=== PATIENT | male | born 1965 | race Caucasian/White ===

== ENCOUNTER 2017-07-03 10:35 | Observation (INO) | payer BC ==
--- NOTE | 2017-07-03 10:57 | ED ---
Chest Pain HPI - General Chief Complaint: Chest Pain Stated Complaint: Chest Pain Time Seen by Provider: 07/03/17 10:43 Source: patient, RN notes reviewed Mode of arrival: wheelchair Limitations: no limitations - History of Present Illness Initial Comments: This is a 51-year-old male with a benign past history who is a former smoker who quit 8 years ago who does however have a very strong history of heart disease he states his great-grandfather his grandfather at the age of 55 and [place] his dad at 86 with a heart condition who complains of 2 days of intermittent episodes of retrosternal chest pain and some left arm pain. Her with left arm discomfort and later had chest pressure. 3-4/10 in severity lasting few minutes every time he would come on. He also feels tired. He does state he is at increased stress at work. He's had no cough no fevers chills or other symptoms. He did take 2 aspirins this morning. MD Complaint: chest pain - Related Data Home Medications Medication Instructions Recorded Confirmed Gabapentin [Neurontin] 400 mg PO TID 07/03/17 07/03/17 Hydrocodone/Acetaminophen [[place] 1 tab PO Q4H PRN 07/03/17 07/03/17 10-325] Omeprazole 20 mg PO DAILY 07/03/17 07/03/17 Allergies Allergy/AdvReac Type Severity Reaction Status Date / Time No Known Allergies Allergy Verified 07/03/17 10:50 Review of Systems ROS Statement: Those systems with pertinent positive or pertinent negative responses have been documented in the HPI. ROS Other: All systems not noted in ROS Statement are negative. EKG Findings - EKG Results: EKG: interpreted by GRACIELAD, sinus rhythm, normal axis, normal QRS, normal ST/T, no acute changes (Normal sinus rhythm a 71 appear interval 134 QRS 92 QT since QTC of 414/449 some artifact is present) Past Medical History Additional Past Medical History / Comment(s): back pain History of Any Multi-Drug Resistant Organisms: None Reported Past Surgical History: Orthopedic Surgery Additional Past Surgical History / Comment(s): knees, right thumb Past Psychological History: No Psychological Hx Reported Smoking Status: Never smoker Past Alcohol Use History: Occasional Past Drug Use History: None Reported General Exam - General Exam Comments Initial Comments: This is a well-developed well-nourished awake alert oriented 3 male Limitations: no limitations General appearance: alert, anxious Head exam: Present: atraumatic, normocephalic, normal inspection Eye exam: Present: normal appearance, PERRL, EOMI. Absent: scleral icterus, conjunctival injection, periorbital swelling ENT exam: Present: normal exam, mucous membranes moist Neck exam: Present: normal inspection. Absent: tenderness, meningismus, lymphadenopathy Respiratory exam: Present: normal lung sounds bilaterally. Absent: respiratory distress, wheezes, rales, rhonchi, stridor Cardiovascular Exam: Present: regular rate, normal rhythm, normal heart sounds. Absent: systolic murmur, diastolic murmur, rubs, gallop, clicks GI/Abdominal exam: Present: soft, normal bowel sounds. Absent: distended, tenderness, guarding, rebound, rigid Extremities exam: Present: normal inspection, full ROM, normal capillary refill. Absent: tenderness, pedal edema, joint swelling, calf tenderness Back exam: Present: normal inspection Neurological exam: Present: alert, oriented X3, CN II-XII intact Psychiatric exam: Present: normal affect, normal mood Skin exam: Present: warm, dry, intact, normal color. Absent: rash Course Vital Signs 07/03/17 07/03/17 10:36 12:00 Temperature 98.3 F Pulse Rate 74 72 Respiratory 16 20 Rate Blood Pressure 158/92 122/87 O2 Sat by Pulse 99 99 Oximetry Chest Pain MDM - MDM I did discuss findings with the patient he is remained pain-free. The presentation is consistent with new onset unstable angina. The patient will be admitted I did discuss case with Dr. Clark. Disposition Clinical Impression: Unstable angina pectoris Disposition: ADMITTED IP TO THIS [facility] Condition: Stable Referrals: Sang Angel III, MD [Primary Care Provider] - 1-2 days
[2017-07-03 11:19] LABS: Basophils % (A) 0 %; CH 32.8; CHCM 33.8; Eosinophils # (A) 0.1 k/uL (0-0.7); Eosinophils % (A) 1 %; HCT 40.6 % (39.0-53.0); HDW 2.36; HGB 13.4 gm/dL (13.0-17.5); Luc # (Auto) 0.19; Luc % (Auto) 3; Lymphocytes # (A) 1.7 k/uL (1.0-4.8); Lymphocytes % (A) 22 %; MCH 32.3 pg (25.0-35.0); MCHC 33.1 g/dL (31.0-37.0); MCV 97.7 fL (80.0-100.0); Monocytes # (A) 0.4 k/uL (0-1.0); Monocytes % (A) 6 %; Neutrophils # (A) 5.1 k/uL (1.3-7.7); Neutrophils % (A) 68 %; RBC 4.15 m/uL (4.30-5.90); RDW 13.1 % (11.5-15.5); WBC 7.5 k/uL (3.8-10.6); WBC (Perox) 7.52
[2017-07-03 11:28] LABS: ALT 43 U/L (21-72); AST 31 U/L (17-59); Alkaline Phosphatase 57 U/L (38-126); Amylase 63 U/L (30-110); Anion Gap 12 mmol/L; Blood Urea Nitrogen 14 mg/dL (9-20); Calcium 9.1 mg/dL (8.4-10.2); Carbon Dioxide 25 mmol/L (22-30); Chloride 101 mmol/L (98-107); Glucose 102 mg/dL (74-99); Magnesium 1.9 mg/dL (1.6-2.3); Non-African American GFR(MDRD) >60 (>60 ml/min/1.73 sqM); Potassium 3.8 mmol/L (3.5-5.1); Sodium 138 mmol/L (137-145); Total Bilirubin 0.9 mg/dL (0.2-1.3); Total Protein 7.5 g/dL (6.3-8.2)
[2017-07-03 11:35] LABS: INR 1.2 (<1.2); Partial Thromboplastin Time 24.4 sec (22.0-30.0); Prothrombin Time 11.7 sec (9.0-12.0)
[2017-07-03 11:37] LABS: Creatine Kinase 534 U/L (55-170)
--- NOTE | 2017-07-03 11:45 | XR ---
EXAMINATION TYPE: XR chest 2V DATE OF EXAM: 07/03/2017 COMPARISON: NONE HISTORY: Chest pain TECHNIQUE: Frontal and lateral views of the chest are obtained. FINDINGS: There is no focal air space opacity, pleural effusion, or pneumothorax seen. Skinfold is n oted of the overlying the left apices extending beyond the lung into the upper neck. The cardiac raquel houette size is within normal limits. The osseous structures are intact. Mild degenerative changes of the thoracic spine are noted. IMPRESSION: No acute cardiopulmonary process.
[2017-07-03 11:51] LABS: Troponin I <0.012 ng/mL (0.000-0.034)
[2017-07-03] MEDS ORDERED: NITROGLYCERIN SL TABS 0.4 MG TAB SUBLINGUAL PRN (12:51)
[2017-07-03] MEDS ORDERED: HEPARIN SODIUM,PORCINE 5,000 UNIT/ML 1 ML VIAL IV ONE (12:51)
[2017-07-03] MEDS ORDERED: HYDROcodone/APAP 10-325MG 1 EACH TAB PO PRN (12:54)
[2017-07-03] MEDS ORDERED: SODIUM CHLORIDE 0.9% 1,000 ML IV SCH (13:00)
[2017-07-03] MEDS: HEPARIN SODIUM,PORCINE 25,000 UNIT in SODIUM CHLORIDE 0.45 % 500 ML IV SCH (13:26)
[2017-07-03] MEDS: GABAPENTIN 400 MG CAP PO SCH ×2 (16:43→21:28)
[2017-07-03] MEDS ORDERED: ALPRAZolam 0.25 MG TAB PO PRN (16:53)
[2017-07-03] MEDS ORDERED: TEMAZEPAM 15 MG CAP PO PRN (16:53)
[2017-07-03 17:51] LABS: Creatine Kinase MB 2.1 ng/mL (0.0-2.4)
[2017-07-03 17:55] LABS: Troponin I 0.073 ng/mL (0.000-0.034)
--- NOTE | 2017-07-03 18:59 | HP ---
HISTORY AND PHYSICAL CHIEF COMPLAINT: Chest pain. HISTORY OF PRESENT ILLNESS: This 51-year-old gentleman with a past medical history of multiple medical problems, including low back pain, history of DJD, history of bilateral knee arthroscopy, being followed by Dr. Angel in the outpatient setting, was complaining of chest pain. The patient felt chest pain mostly in the left side. Subsequently left-sided and also left arm and left jaw also. The patient came to [facility] and was admitted for further evaluation. The patient actually has a family history, also. There is no history of any fever, rigors. No history of headache, loss of consciousness, seizures. No relieving factors. No other symptoms at this time. PAST MEDICAL AND SURGICAL HISTORY: 1. History of DJD. 2. History of bilateral knee arthroscopy. 3. History of chronic back pain. 4. History of left arm fracture. HOME MEDICATIONS: 1. Hydrocodone 10 mg q.4 p.r.n. 2. Neurontin 400 mg p.o. t.i.d. 3. Omeprazole 20 mg p.o. daily. ALLERGIES: NONE. FAMILY HISTORY: History of coronary artery disease in father and paternal grandfather. SOCIAL HISTORY: Previous history of smoking. Occasional alcohol intake. REVIEW OF SYSTEMS: ENT: No diminished hearing. No diminished vision. CARDIOVASCULAR SYSTEM: As mentioned earlier. RESPIRATORY SYSTEM: As mentioned earlier. GI: No nausea, vomiting. : No dysuria. NERVOUS SYSTEM: No numbness, weakness. ALLERGY/IMMUNOLOGY: No asthma or hayfever. MUSCULOSKELETAL: As mentioned earlier. HEMATOLOGY/ONCOLOGY: No history of anemia. ENDOCRINE: No history of diabetes or hypothyroidism. CONSTITUTIONAL: As mentioned earlier. DERMATOLOGY: Negative. RHEUMATOLOGY: Negative. PSYCHIATRY: As mentioned earlier. PHYSICAL EXAMINATION: Patient is alert and oriented x3. Pulse is 99, blood pressure 140/73, respiration 18, temperature 98 degrees, pulse ox 94% on room air. HEENT: Conjunctivae normal. NECK: No jugular venous distention. CARDIOVASCULAR SYSTEM: S1, S2 muffled. RESPIRATORY SYSTEM: Breath sounds diminished at the bases. A few scattered rhonchi. No crackles. ABDOMEN: Soft, nontender. No mass palpable. LEGS: No edema. No swelling. NERVOUS SYSTEM: Higher functions as mentioned earlier. Moves all four limbs. No focal motor or sensory deficits. LYMPHATICS: No lymph node palpable in neck or axillae. SKIN: No ulcer, rash, bleeding. LABS: WBC 7.2, hemoglobin 13.4. INR 1.2. Glucose 102. CK is 534. ASSESSMENT: 1. Chest pain; possible unstable angina. 2. Creatine kinase 534 with normal troponin. 3. Chronic low back pain. 4. Degenerative joint disease. 5. History of bilateral knee arthroscopy. 6. Remote history of nicotine dependence. 7. Family history of coronary artery disease. RECOMMENDATIONS AND DISCUSSION: I recommend to continue current medication, continue symptomatic treatment. Otherwise, rule out myocardial infarction. Patient's CK is slightly elevated. EKG did not show an acute abnormality. Will continue to monitor and closely follow with Cardiology. Patient will require further cardiac workup at this time. Further recommendations to follow. JAYL / AMBERLYN: [id number] / MTDD
[2017-07-03] MEDS ORDERED: HEPARIN SODIUM,PORCINE 5,000 UNIT/ML 1 ML VIAL IV PRN (19:34)
[2017-07-03] MEDS: NITROGLYCERIN OINT 1 INCH/GM PACKET TOPICAL SCH (20:21)
[2017-07-03 23:12] LABS: Creatine Kinase 334 U/L (55-170)
[2017-07-03 23:25] LABS: Creatine Kinase MB 1.8 ng/mL (0.0-2.4); Troponin I <0.012 ng/mL (0.000-0.034)
[2017-07-04] MEDS: NITROGLYCERIN OINT 1 INCH/GM PACKET TOPICAL SCH ×3 (02:11→11:08)
[2017-07-04 03:22] LABS: Basophils % (A) 0 %; CH 32.9; CHCM 33.8; Eosinophils # (A) 0.1 k/uL (0-0.7); Eosinophils % (A) 1 %; HCT 39.4 % (39.0-53.0); HDW 2.32; Luc # (Auto) 0.12; Luc % (Auto) 2; Lymphocytes # (A) 2.3 k/uL (1.0-4.8); Lymphocytes % (A) 34 %; MCH 32.4 pg (25.0-35.0); Mean Platelet Volume 6.9; Monocytes # (A) 0.4 k/uL (0-1.0); Monocytes % (A) 6 %; Neutrophils # (A) 3.8 k/uL (1.3-7.7); Neutrophils % (A) 57 %; RBC 4.02 m/uL (4.30-5.90); RDW 13.1 % (11.5-15.5); WBC 6.7 k/uL (3.8-10.6); WBC (Perox) 6.75
[2017-07-04 03:33] LABS: Anion Gap 10 mmol/L; Blood Urea Nitrogen 13 mg/dL (9-20); Calcium 8.9 mg/dL (8.4-10.2); Carbon Dioxide 23 mmol/L (22-30); Chloride 105 mmol/L (98-107); Cholesterol 226 mg/dL (<200); Creatine Kinase 302 U/L (55-170); Glucose 105 mg/dL (74-99); HDL Cholesterol 71 mg/dL (40-60); Non-African American GFR(MDRD) >60 (>60 ml/min/1.73 sqM); Potassium 3.9 mmol/L (3.5-5.1); Sodium 138 mmol/L (137-145)
[2017-07-04 04:13] VITALS: RESP 16
[2017-07-04] MEDS: GABAPENTIN 400 MG CAP PO SCH (08:01)
[2017-07-04 08:11] VITALS: PULSE 81
[2017-07-04] MEDS ORDERED: ASPIRIN 325 MG TAB PO SCH (09:00)
[2017-07-04] MEDS ORDERED: PANTOPRAZOLE 40 MG TABLET PO SCH (09:00)
--- NOTE | 2017-07-04 09:05 | ECHOF ---
Referral Reason: MEASUREMENTS -------- HEIGHT: 177.8 cm WEIGHT: 84.8 kg BP: 140/87 RVIDd: 2.3 cm (< 3.3) IVSd: 0.9 cm (0.6 - 1.1) LVIDd: 4.7 cm (3.9 - 5.3) LVPWd: 1.1 cm (0.6 - 1.1) IVSs: 1.4 cm LVIDs: 3.8 cm LVPWs: 1.3 cm LAESV Index (A-L): 25.47 ml/m Ao Diam: 3.3 cm (2.0 - 3.7) AV Cusp: 2.2 cm (1.5 - 2.6) LA Diam: 3.8 cm (2.7 - 3.8) MV EXCURSION: 18.221 mm (> 18.000) MV EF SLOPE: 178 mm/s (70 - 150) EPSS: 0.7 cm MV E Haja: 0.88 m/s MV DecT: 214 ms MV A Haja: 0.54 m/s MV E/A Ratio: 1.63 RAP: 15.00 mmHg RVSP: 36.87 mmHg FINDINGS -------- Sinus rhythm. This was a technically adequate study. The left ventricular size is normal. Left ventricular wall thickness is normal. Overall left vent ricular systolic function is normal with, an EF between 55 - 60 %. The right ventricle is normal in size and function. Normal LA size by volume 22+/-6 ml/m2. The right atrium is normal in size. The aortic valve is trileaflet, and appears structurally normal. No aortic stenosis or regurgitation. The mitral valve leaflets are mildly thickened. There is trace mitral regurgitation. Trace tricuspid regurgitation present. Right ventricular systolic pressure is normal at < 35 mmHg. There is borderline pulmonary artery hypertension. The pulmonic valve is normal. The aortic root size is normal. The inferior vena cava is dilated with no significant inspiratory collapse which is consistent estima joe right atrial pressure of >20 mmHg. The pericardium is normal. There is no pericardial effusion. CONCLUSIONS -------- 1. Sinus rhythm. 2. This was a technically adequate study. 3. The left ventricular size is normal. 4. Left ventricular wall thickness is normal. 5. Overall left ventricular systolic function is normal with, an EF between 55 - 60 %. 6. Normal LA size by volume 22+/-6 ml/m2. 7. The aortic valve is trileaflet, and appears structurally normal. No aortic stenosis or regurgitati on. 8. The mitral valve leaflets are mildly thickened. 9. There is trace mitral regurgitation. 10. Trace tricuspid regurgitation present. 11. Right ventricular systolic pressure is normal at < 35 mmHg. 12. There is borderline pulmonary artery hypertension. 13. The aortic root size is normal. 14. The inferior vena cava is dilated with no significant inspiratory collapse which is consistent es timated right atrial pressure of >20 mmHg. 15. There is no pericardial effusion. .NET ARCHITECT: Eloy Jackson RDCS
[2017-07-04] MEDS: HEPARIN SODIUM,PORCINE 25,000 UNIT in SODIUM CHLORIDE 0.45 % 500 ML IV SCH (11:05)
--- NOTE | 2017-07-04 11:28 | P.CRDCN ---
History of Present Illness Consult date: 07/04/17 Chief complaint: Chest pain History of present illness: This is a pleasant 51-year-old male patient with no significant past medical history but significant family history of CAD presented to the hospital complaining of chest discomfort. 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 The EKG showed sinus rhythm without any significant changes on the subsequent EKG did not show any changes as well. The cardiac enzymes were checked and came in to be slightly abnormal with only 1 set. The chest x-ray did not show any acute abnormalities. Past Medical History Additional Past Medical History / Comment(s): Chronic low back pain, past L arm fracture. History of Any Multi-Drug Resistant Organisms: None Reported Past Surgical History: Orthopedic Surgery Additional Past Surgical History / Comment(s): Bilateral knee arthroscopies, R thumb surgery d/t fracture, ORIF L wrist, colonoscopy, back injections. Past Anesthesia/Blood Transfusion Reactions: No Reported Reaction Smoking Status: Former smoker - Past Family History Father Family Medical History: Coronary Artery Disease (CAD) Additional Family Medical History / Comment(s): Father of CAD at the age of 86yrs. Pt's paternal grandfather of a AL at the age of 5yrs and pt's paternal great grandfather also of a AL at the age of 55yrs. Mother Family Medical History: COPD Additional Family Medical History / Comment(s): Mother is . She was a smoker. Medications and Allergies Home Medications Medication Instructions Recorded Confirmed Type Gabapentin [Neurontin] 400 mg PO TID 07/03/17 07/03/17 History Hydrocodone/Acetaminophen [[place] 1 tab PO Q4H PRN 07/03/17 07/03/17 History 10-325] Omeprazole 20 mg PO DAILY 07/03/17 07/03/17 History Allergies Allergy/AdvReac Type Severity Reaction Status Date / Time No Known Allergies Allergy Verified 07/03/17 10:50 Physical Exam Vitals: Vital Signs Temp Pulse Pulse Resp BP BP Pulse Ox 07/04/17 08:03 98.2 F 81 16 112/81 97 07/04/17 04:00 97.7 F 72 16 111/61 98 07/04/17 00:00 97.8 F 73 18 115/69 98 07/03/17 20:00 81 18 07/03/17 19:07 98.5 F 83 18 150/97 97 07/03/17 16:00 99 18 07/03/17 15:26 98.0 F 99 18 141/73 94 L 07/03/17 14:55 74 18 07/03/17 14:33 97.9 F 74 18 140/87 97 07/03/17 13:52 97.4 F L 74 18 137/79 98 07/03/17 13:00 97.4 F L 68 18 128/87 99 07/03/17 12:00 72 20 122/87 99 Intake and Output 07/03/17 07/04/17 07/04/17 22:59 06:59 14:59 Intake Total 499.333 646.122 194.545 Balance 499.333 646.122 194.545 Intake: Intake, IV Titration 139.333 406.122 194.545 Amount Heparin Sodium,Porcine 25 139.333 166.122 194.545 ,000 unit In Sodium Chloride 0.45 % 500 ml @ 11.9 UNITS/KG/HR 19.97 mls/hr IV .Q24H SHAMA Rx#: [id number] Sodium Chloride 0.9% 1, 240 000 ml @ 20 mls/hr IV . Q24H SHAMA Rx#:[id number] Oral 360 240 Other: Voiding Method Toilet Toilet # Voids 1 2 Weight 80.9 kg - Constitutional General appearance: no acute distress - Respiratory Respiratory: bilateral: CTA - Cardiovascular Rhythm: regular Heart sounds: normal: S1, S2 Results 07/04/17 02:56 07/04/17 02:56 Cardiac Enzymes 07/03/17 07/03/17 07/03/17 Range/Units 10:55 10:55 17:05 AST 31 (17-59) U/L CK-MB (CK-2) 3.0 H* 2.1 (0.0-2.4) ng/mL Troponin I <0.012 0.073 H* (0.000-0.034) ng/mL 07/03/17 Range/Units 22:40 AST (17-59) U/L CK-MB (CK-2) 1.8 (0.0-2.4) ng/mL Troponin I <0.012 (0.000-0.034) ng/mL Coagulation 07/03/17 07/03/17 07/04/17 Range/Units 10:55 19:36 02:56 PT 11.7 (9.0-12.0) sec APTT 24.4 31.9 H 46.4 H (22.0-30.0) sec 07/04/17 Range/Units 09:59 PT (9.0-12.0) sec APTT 46.9 H (22.0-30.0) sec Lipids 07/04/17 Range/Units 02:56 Triglycerides 84 (<150) mg/dL Cholesterol 226 H (<200) mg/dL HDL Cholesterol 71 H (40-60) mg/dL CBC 07/04/17 Range/Units 02:56 WBC 6.7 (3.8-10.6) k/uL RBC 4.02 L (4.30-5.90) m/uL Hgb 13.0 (13.0-17.5) gm/dL Hct 39.4 (39.0-53.0) % Plt Count 210 (150-450) k/uL Comprehensive Metabolic Panel 07/03/17 07/04/17 Range/Units 10:55 02:56 Sodium 138 138 (137-145) mmol/L Potassium 3.8 3.9 (3.5-5.1) mmol/L Chloride 101 105 (98-107) mmol/L Carbon Dioxide 25 23 (22-30) mmol/L BUN 14 13 (9-20) mg/dL Creatinine 0.80 0.80 (0.66-1.25) mg/dL Glucose 102 H 105 H (74-99) mg/dL Calcium 9.1 8.9 (8.4-10.2) mg/dL AST 31 (17-59) U/L ALT 43 (21-72) U/L Alkaline Phosphatase 57 (38-126) U/L Total Protein 7.5 (6.3-8.2) g/dL Albumin 4.6 (3.5-5.0) g/dL Current Medications Generic Name Dose Route Start Last Admin Trade Name Freq PRN Reason Stop Dose Admin Hydrocodone Bitart/Acetaminophen 1 each 07/03/17 12:54 07/04/17 08:01 [place] 10 PO 1 each Q4H PRN Administration Moderate Pain Alprazolam 0.25 mg 07/03/17 16:53 07/03/17 20:24 Xanax PO 0.25 mg TID PRN Administration Anxiety Aspirin 325 mg 07/04/17 09:00 07/04/17 08:01 Aspirin PO 325 mg DAILY SHAMA Administration Gabapentin 400 mg 07/03/17 16:00 07/04/17 08:01 Neurontin PO 400 mg TID SHAMA Administration Heparin Sodium (Porcine) 0 unit 07/03/17 19:34 07/03/17 20:24 Heparin IV 4,000 unit PER PROTOCOL PRN Administration Low PTT Protocol Heparin Sodium (Porcine) 25, 500 mls @ 19.97 mls/hr 07/03/17 13:00 07/04/17 11:05 000 unit/ Sodium Chloride IV 17 units/kg/hr .Q24H SHAMA 28.53 mls/hr Protocol Administration 11.9 UNITS/KG/HR Sodium Chloride 1,000 mls @ 20 mls/hr 07/03/17 13:00 07/03/17 13:22 Saline 0.9% IV 20 mls/hr .Q24H SHAMA Administration Nitroglycerin 1 inch 07/03/17 18:00 07/04/17 11:08 Nitro-Bid Oint TOPICAL 1 inch Q6HR SHAMA Administration Nitroglycerin 0.4 mg 07/03/17 12:51 Nitrostat SUBLINGUAL Q5M PRN Chest Pain Pantoprazole Sodium 40 mg 07/04/17 09:00 07/04/17 08:01 Protonix PO 40 mg DAILY SHAMA Administration Temazepam 15 mg 07/03/17 16:53 Restoril PO HS PRN Insomnia Intake and Output 07/03/17 07/04/17 07/04/17 22:59 06:59 14:59 Intake Total 499.333 646.122 194.545 Balance 499.333 646.122 194.545 Intake: Intake, IV Titration 139.333 406.122 194.545 Amount Heparin Sodium,Porcine 25 139.333 166.122 194.545 ,000 unit In Sodium Chloride 0.45 % 500 ml @ 11.9 UNITS/KG/HR 19.97 mls/hr IV .Q24H SHAMA Rx#: [id number] Sodium Chloride 0.9% 1, 240 000 ml @ 20 mls/hr IV . Q24H [facility]AMA Rx#:[id number] Oral 360 240 Other: Voiding Method Toilet Toilet # Voids 1 2 Weight 80.9 kg 07/04/17 02:56 07/04/17 02:56 Assessment and Plan Assessment: This is a pleasant 51-year-old gentleman who presented to the hospital with chest discomfort with one set of abnormal cardiac enzymes. The EKG did not show any changes. He underwent an echocardiogram which revealed normal LV function. I recommended proceeding with a stress test to rule out any severe underlying CAD. The patient would like to go home. He is insisting on going home. I recommended to get the patient up and around and if he is pain free he might be able to go home and have the stress test done tomorrow morning.
[2017-07-04 11:35] VITALS: BP 123/72; TEMP 97.5
--- NOTE | 2017-07-04 16:57 | P.DS ---
Providers Date of admission: 07/03/17 12:51 Attending physician: Ronal Clark Consults: 07/03/17 12:51 Consult Physician Urgent Consulting Provider: Eligio Lopez Consult Reason/Comments: Chest pain Do you want consulting provider notified?: Yes Primary care physician: Sang Angel [facility] Course: 51-year-old gentleman was admitted chest pain. Myocardial infarction ruled out. Cardiology recommending outpatient stress test. Patient is keen on going home. Patient be discharged in a stable condition with guarded prognosis after cardiology clearance. Patient and family understands and agrees. On exam vitals are stable. Cardio S1 and S2 normal. Respirator system. Prostration. Abdomen soft nontender. No system no focal deficit. Final diagnosis 1. Chest pain myocardial infarction ruled out. Rule out coronary disease. 2. Creatinine kinase 534 with normal troponin. 3. Chronic low back pain. 4. DJD. 5. History of bilateral knee arthroscopic. Patient Condition at Discharge: Stable Plan - Discharge Summary Discharge Rx Participant: Yes New Discharge Prescriptions: Continue Hydrocodone/Acetaminophen [[place] 10-325] 1 tab PO Q4H PRN PRN Reason: Pain Gabapentin [Neurontin] 400 mg PO TID Omeprazole 20 mg PO DAILY Discharge Medication List Gabapentin [Neurontin] 400 mg PO TID 07/03/17 [History] Hydrocodone/Acetaminophen [[place] 10-325] 1 tab PO Q4H PRN 07/03/17 [History] Omeprazole 20 mg PO DAILY 07/03/17 [History] Follow up Appointment(s)/Referral(s): Surya Dutton MD [STAFF PHYSICIAN] - 2 Weeks (stress test throught office) Sang Angel III, MD [Primary Care Provider] - 1-2 days Activity/Diet/Wound Care/Special Instructions: diet cardiac act limited Discharge Disposition: HOME SELF-CARE
== END 2017-07-04 13:13 | disposition home or self-care (01) ==
LOC: EC 10:35 → 3OBS 12:51 → 6SEL 20:01
PROVIDERS: ADMIT Hospitalist; ATTEND Hospitalist
DX: R07.89 Other chest pain (principal); R74.8 Abnormal levels of other serum enzymes; M54.5 Low back pain; G89.29 Other chronic pain; M19.90 Unspecified osteoarthritis, unspecified site; M79.602 Pain in left arm; R07.2 Precordial pain; R68.84 Jaw pain; R53.83 Other fatigue; Z56.3 Stressful work schedule; Z79.899 Other long term (current) drug therapy; Z87.891 Personal history of nicotine dependence; Z82.49 Family history of ischemic heart disease and other diseases of the circulatory system; Z82.5 Family history of asthma and other chronic lower respiratory diseases
CPT/HCPCS: 99285; 96365; 96376 ×3; 36415; 93005; 93306; 85379; 80061; 80053; 80048; 82150; 82550 ×2; 82553; 83690; 83735; 84484; 85025 ×2; 85610; 85730 ×2; 71020; G0378 ×3; J1644 ×3

== ENCOUNTER 2023-10-17 23:40 | Emergency (ER) | payer BC ==
--- NOTE | 2023-10-17 23:48 | ED ---
General Adult HPI - General Chief complaint: Recheck/Abnormal Lab/Rx Stated complaint: Possible drug ingestion Time Seen by Provider: 10/17/23 23:48 Source: EMS Mode of arrival: EMS Limitations: no limitations - History of Present Illness Initial comments: Cortes is a 57-year-old gentleman brought to the ER today in law enforcement custody for a medical evaluation and clearance to go to halfway. Patient reports that he was doing stand-up comedy at a local bar he did drink some beers, patient was apparently speeding and was pulled over by law enforcement he then became agitated with law enforcement he was noted to reach into his pocket and swallow 1 pill and he reported 1 minute and then was able to provide 3 more pills to land law examiner which she advised to work [place] which she is prescribed for back pain. Law enforcement does note that after being cuff the patient became agitated and was taken to the ground he does have a hematoma on his right forearm due to this - Related Data Home Medications Medication Instructions Recorded Confirmed Gabapentin [Neurontin] 400 mg PO TID 07/03/17 07/03/17 Hydrocodone/Acetaminophen [[place] 1 tab PO Q4H PRN 07/03/17 07/03/17 10-325] Omeprazole 20 mg PO DAILY 07/03/17 07/03/17 Allergies Allergy/AdvReac Type Severity Reaction Status Date / Time No Known Allergies Allergy Verified 07/03/17 10:50 Review of Systems ROS Statement: Those systems with pertinent positive or pertinent negative responses have been documented in the HPI. ROS Other: All systems not noted in ROS Statement are negative. Past Medical History Past Medical History: Chest Pain / Angina Additional Past Medical History / Comment(s): Chronic low back pain, past L arm fracture. History of Any Multi-Drug Resistant Organisms: None Reported Past Surgical History: Orthopedic Surgery Additional Past Surgical History / Comment(s): Bilateral knee arthroscopies, R thumb surgery d/t fracture, ORIF L wrist, colonoscopy, back injections. Past Anesthesia/Blood Transfusion Reactions: No Reported Reaction Past Psychological History: No Psychological Hx Reported Smoking Status: Unknown if ever smoked Past Alcohol Use History: Occasional Past Drug Use History: None Reported - Past Family History Father Family Medical History: Coronary Artery Disease (CAD) Additional Family Medical History / Comment(s): Father of CAD at the age of 86yrs. Pt's paternal grandfather of a PR at the age of 5yrs and pt's paternal great grandfather also of a PR at the age of 55yrs. Mother Family Medical History: COPD Additional Family Medical History / Comment(s): Mother is . She was a smoker. General Exam Limitations: no limitations General appearance: alert, in no apparent distress Head exam: Present: atraumatic Eye exam: Present: PERRL ENT exam: Present: normal exam Respiratory exam: Absent: respiratory distress Cardiovascular Exam: Present: tachycardia GI/Abdominal exam: Absent: distended Rectal exam: Present: deferred Extremities exam: Present: other (Arms RN handcuffs, there is a hematoma on the right forearm proximal to the handcuffs) Neurological exam: Present: alert, oriented X3 Psychiatric exam: Present: agitated Skin exam: Present: warm, dry, abrasion (Abrasion over the right wrist) Course Vital Signs 10/17/23 23:42 Temperature 98.4 F Pulse Rate 114 H Respiratory 16 Rate Blood Pressure 149/99 O2 Sat by Pulse 99 Oximetry Medical Decision Making - Medical Decision Making Was pt. sent in by a medical professional or institution (, PA, PEDIATRIC SPEECH THERAPIST, urgent care, hospital, or custodial...) When possible be specific @ -No Did you speak to anyone other than the patient for history (EMS, parent, family, police, friend...)? What history was obtained from this source @ -Law enforcement Did you review nursing and triage notes (agree or disagree)? Why? @ -I reviewed and agree with nursing and triage notes Were old charts reviewed (outside hosp., previous admission, EMS record, old EKG, old radiological studies, urgent care reports/EKG's, custodial records)? Report findings @ -No old charts were reviewed Differential Diagnosis (chest pain, altered mental status, abdominal pain women, abdominal pain men, vaginal bleeding, weakness, fever, dyspnea, syncope, headache, dizziness, GI bleed, back pain, seizure, CVA, palpatations, mental health)? @ -Not applicable EKG interpreted by me (3pts min.). @ -As above X-rays interpreted by me (1pt min.). @ -X-ray of the right forearm reveals no obvious fractures CT interpreted by me (1pt min.). @ -None done U/S interpreted by me (1pt. min.). @ -None done What testing was considered but not performed or refused? (CT, X-rays, U/S, labs)? Why? @ -None What meds were considered but not given or refused? Why? @ -None Did you discuss the management of the patient with other professionals (professionals i.e. , PA, PEDIATRIC SPEECH THERAPIST, lab, RT, psych nurse, social media designer, egg buyer, teacher, air control/anti air warfare officer, porter sample case)? Give summary @ -No Was smoking cessation discussed for >3mins.? @ -No Was critical care preformed (if so, how long)? @ -No Were there social determinants of health that impacted care today? How? (Homelessness, low income, unemployed, alcoholism, drug addiction, transportation, low edu. Level, literacy, decrease access to med. care, halfway, rehab)? @ -No Was there de-escalation of care discussed even if they declined (Discuss DNR or withdrawal of care, Hospice)? DNR status @ -No What co-morbidities impacted this encounter? (DM, HTN, Smoking, COPD, CAD, Cancer, CVA, ARF, Chemo, Hep., AIDS, mental health diagnosis, sleep apnea, morbid obesity)? @ -None Was patient admitted / discharged? Hospital course, mention meds given and route, prescriptions, significant lab abnormalities, going to OR and other pertinent info. @ -Discharged to halfway Patient was seen and evaluated history obtained from patient and land law examiner patient reports he had been drinking alcohol earlier in the night when he was pulled over by law enforcement he did take 1 [place] but provided the other 3 to the land law examiner denies any other ingestions. Patient is awake alert oriented he does chronically take [place] this is not a new ingestion for him. X-ray of the forearm was obtained and there is no signs of underlying fracture. At this time patient is medically cleared for discharge with law enforcement. Undiagnosed new problem with uncertain prognosis? @ -No Drug Therapy requiring intensive monitoring for toxicity (Heparin, Nitro, Insulin, Cardizem)? @ -No Were any procedures done? @ -No Diagnosis/symptom? @ -Nursing Home clearance Acute, or Chronic, or Acute on Chronic? @ -Default Uncomplicated (without systemic symptoms) or Complicated (systemic symptoms)? @ -Default Side effects of treatment? @ -No Exacerbation, Progression, or Severe Exacerbation? @ -No Poses a threat to life or bodily function? How? (Chest pain, [place], PR, pneumonia, PE, COPD, DKA, ARF, appy, cholecystitis, CVA, Diverticulitis, Homicidal, Suicidal, threat to staff... and all critical care pts) @ -No Disposition Clinical Impression: Medical clearance for incarceration Disposition: HOME SELF-CARE Is patient prescribed a controlled substance at d/c from ED?: No Referrals: Sang Angel III, MD [Primary Care Provider] - 1-2 days
[2023-10-17 23:59] VITALS: BP 149/99; PULSE 114; RESP 16; TEMP 98.4
--- NOTE | 2023-10-18 01:07 | XR ---
EXAM: XR Right Forearm, 2 Views CLINICAL HISTORY: XR Reason: injury TECHNIQUE: Frontal and lateral views of the right forearm. COMPARISON: No relevant prior studies available. FINDINGS: Bones/joints: Slight osteophytosis of the coronoid process is at the elbow. Fat pads are nondisplaced. No joint effusion. The osseous structures are intact and normally aligned. No acute fracture or dislocation is seen. Soft tissues: Unremarkable. IMPRESSION: No acute findings in the right forearm.
== END 2023-10-18 00:35 | disposition home or self-care (01) ==
LOC: EC 23:40
DX: S50.11XA Contusion of right forearm, initial encounter (principal); Z02.89 Encounter for other administrative examinations; X50.0XXA Overexertion from strenuous movement or load, initial encounter
CPT/HCPCS: 99284